=== PATIENT | female | born 1990 | race Hispanic/Latino ===

== ENCOUNTER 2020-01-28 21:44 | Emergency (ER) | payer SELFPAY ==
--- OUTSIDE RECORDS SUMMARY | 2020-01-28 23:00 | XMS REPORT | Continuity of Care Document ---
:1990 Author Organization [facility] t Address [address] [place] [address] Dr. Kamara [address] [place] [address] Care Team Providers Name Role Phone Unavailable Unavailable Unavailable Problems This patient has no known problems. Allergies, Adverse Reactions, Alerts This patient has no known allergies or adverse reactions. Medications This patient has no known medications. Procedures This patient has no known procedures. Results This patient has no known results.
--- NOTE | 2020-01-29 10:31 | ER ---
Nurse's Notes [facility] Name: Valentino Espinosa Age: 29 yrs Sex: Female : 1990 Arrival Date: 01/28/2020 Time: 21:45 Bed Waiting Private MD: Diagnosis: Presentation: 01/27 21:56 Chief complaint: Patient states: Abdominal pain since an hour ago. More on the lower ca1 abdomen and radiating to back and bottom. Denies N/V/D. Coronavirus screen: Proceed with normal triage. Patient denies a cough. Patient denies shortness of breath or difficulty breathing. Patient denies measured and/or subjective temperature greater than 100.4F prior to today's visit. Patient denies travel on a cruise ship or to a country the [facility] currently lists as an affected area. Patient denies contact with known and/or suspected case of COVID-19. Ebola Screen: Patient negative for fever greater than or equal to 101.5 degrees Fahrenheit, and additional compatible Ebola Virus Disease symptoms Patient denies exposure to infectious person. Patient denies travel to an Ebola-affected area in the 21 days before illness onset. No symptoms or risks identified at this time. Initial Sepsis Screen: Does the patient meet any 2 criteria? No. Patient's initial sepsis screen is negative. Does the patient have a suspected source of infection? No. Patient's initial sepsis screen is negative. Risk Assessment: Do you want to hurt yourself or someone else? Patient reports no desire to harm self or others. 21:56 Method Of Arrival: Ambulatory ca1 21:56 Acuity: LAVON 3 ca1 21:56 Onset of symptoms was January 28, 2020. 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 - Social history:: Smoking status: Patient denies any tobacco usage or history of. Vital Signs: 21:56 BP 124 / 73; Pulse 88; Resp 16 S; Temp 98(TE); Pulse Ox 100% on R/A; Weight 77.11 kg ca1 (R); Height 5 ft. 8 in. (172.72 cm) (R); Pain 810; 21:56 Body Mass Index 25.85 (77.11 kg, 172.72 cm) ca1 ED Course: 21:45 Patient arrived in ED. ag3 21:58 Triage completed. ca1 21:58 Arm band placed on right wrist. ca1 Administered Medications: No medications were administered Outcome: 22:34 Patient left the ED. tl1 Signatures: Karolina Lopez RN RN tl1 Syl Campos ag3 Jazzmine Burgos, RN RN ca1
[2020-01-29 13:57] VITALS: BP 124/73; TEMP 98; O2SAT 100
== END 2020-01-28 22:34 | disposition left against medical advice (07) ==
LOC: ER 21:44
DX: Z53.21 Procedure and treatment not carried out due to patient leaving prior to being seen by health care provider (principal)
CPT/HCPCS: 99281

== ENCOUNTER 2020-08-06 21:41 | Emergency (ER) | payer SELFPAY ==
--- OUTSIDE RECORDS SUMMARY | 2020-08-06 21:43 | XMS REPORT | Continuity of Care Document ---
:1990 Author Organization [facility] t Address [address] [place] [address] Care Team Providers Name Role Phone Doctor Unassigned, Name Attending Clinician Unavailable Karol Lanza Attending Clinician Problems This patient has no known problems. Allergies, Adverse Reactions, Alerts This patient has no known allergies or adverse reactions. Medications This patient has no known medications. Procedures This patient has no known procedures. Encounters Start End Encounter Admission Attending Care Care Encounter Source Date/Time Date/Time Type Type Clinicians Facility Department ID 2020-06-09 2020-06-09 Orders Doctor TRISTON [id number] 00:00:00 00:00:00 Only UnassignedKAEL [id number] [place] [facility] [id number] 2020-03-05 2020-03-05 Telephone ORTEGA Stone [id number] 00:00:00 00:00:00 Lexis Roberson DIRECTOR SAF[employer]NCIL [id number] [facility] [id number] MATERNAL [id number] & CHILD [address] [place] [address] Results This patient has no known results.
--- OUTSIDE RECORDS SUMMARY | 2020-08-06 21:43 | XMS REPORT | Summary of Care ---
:1990 Author Organization [facility] Address [address] [place] [address] Care Team Providers Name Role Phone Karol Stone Primary Care Provider Encounter Details Date Type Department Care Team Description 06/09/2020 Orders Only [facility] Doctor Unassigned, No [address] [facility] Name [place] [id number] [address] [facility] [place] [id number] Allergies No Known Allergiesdocumented as of this encounter (statuses as of 06/24/2020) Medications Medication Sig Dispensed Refills Start Date End Date Status ALPRAZolam (XANAX) 0.5 Take 0.5 mg by 0 Active mg tablet mouth 3 (three) times daily. VICODIN 5-300 mg TAKE ONE (1) 0 12/07/2017 Active tablet TABLET(S) BY MOUTH EVERY FOUR TO SIX HOURS NEEDED FOR DENTAL PAIN. acyclovir 400 mg Take 1 tablet by 60 tablet 0 03/05/2020 Active tabletIndications: mouth 2 (two) Herpes, vulvar times daily. documented as of this encounter (statuses as of 06/24/2020) Active Problems Problem Noted Date Well woman exam 02/26/2019 Contraceptive management 02/26/2019 Pain pelvic 02/26/2019 Genital herpes 10/17/2016 documented as of this encounter (statuses as of 06/24/2020) Resolved Problems Problem Noted Date Resolved Date Vaginitis and vulvovaginitis, unspecified 11/14/2016 01/10/2018 Sore throat 04/19/2016 01/10/2018 Exposure to herpes 04/19/2016 11/23/2017 documented as of this encounter (statuses as of 06/24/2020) Immunizations Name Administration Dates Next Due Td 09/07/2015 documented as of this encounter Social History Tobacco Use Types Packs/Day Years Used Date Former Smoker Quit: 08/07/19 11 Smokeless Tobacco: Never Used Alcohol Use Drinks/Week oz/Week Comments Yes 0 Standard drinks or equivalent 0.0 socially Sex Assigned at Date Recorded Not on file documented as of this encounter Last Filed Vital Signs Not on filedocumented in this encounter Plan of Treatment Health Maintenance Due Date Last Done Comments VARICELLA VACCINES (1 of 2 1989 - 2-dose childhood series) Depression Screening 2000 DTaP,Tdap,and Td Vaccines 2007 09/07/2015 (1 - Tdap) INFLUENZA VACCINE (#1) 2020 PAP SMEAR 02/26/2022 02/26/2019, 04/08/2015, 11/01/2011, Additional history exists PNEUMOCOCCAL 0-64 YEARS Aged Out No longe r eligible COMBINED SERIES based on patient 's age to complete this topic documented as of this encounter Procedures Procedure Name Priority Date/Time Associated Diagnosis Comme nts AUTHORIZATION FOR RELEASE Routine 06/09/2020 12:01 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
[2020-08-06] MEDS ORDERED: LORAZEPAM 0.5 MG TABLET ONE (22:12)
--- NOTE | 2020-08-06 22:43 | EDPHYS ---
Physician Documentation [facility] Name: Valentino Espinosa Age: 30 yrs Sex: Female : 1990 Arrival Date: 08/06/2020 Time: 21:41 Bed 7 Private MD: ED Physician Frank Live HPI: 08/06 21:53 This 30 yrs old Female presents to ER via Unassigned with complaints of kb Shortness Of Breath, Chest Pressure, Covid+. 21:53 The patient has shortness of breath at rest. Onset: The symptoms/episode began/occurred kb yesterday. Duration: The symptoms are continuous. The patient's shortness of breath has no apparent modifying factors. Associated signs and symptoms: Pertinent positives: anxiety, Pertinent negatives: chest pain, non-productive cough, productive cough, diaphoresis, dizziness, fever, hemoptysis, loss of consciousness, nausea, numbness in extremities, visual changes, vomiting. Severity of symptoms: At their worst the symptoms were moderate in the emergency department the symptoms are unchanged. The patient has experienced similar episodes in the past, a few times. The patient has not recently seen a physician. Pt states she was diagnosed with covid on Monday. Started having weakness and shortness of breath yesterday. States she has anxiety and it has been bad today so it's making the shortness of breath worse. Came in for something for anxiety and a chest x-ray. I told pt I would like to do blood work and a Chest CT to rule out a PE. Pt states she recently had blood work and it was all fine. Refuses blood work and CT at this time. States she just wants a chest x-ray. Started zithromax and prednisone today. 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 - Social history:: Smoking status: Patient denies any tobacco usage or history of. ROS: 21:59 Constitutional: Negative for fever, chills, and weight loss, Cardiovascular: Negative kb for chest pain, palpitations, and edema, Abdomen/GI: Negative for abdominal pain, nausea, vomiting, diarrhea, and constipation, Back: Negative for injury and pain, MS/Extremity: Negative for injury and deformity, Skin: Negative for injury, rash, and discoloration, Neuro: Negative for headache, weakness, numbness, tingling, and seizure. 21:59 Respiratory: Positive for shortness of breath. 21:59 Psych: Positive for anxiety. Exam: 21:58 Head/Face: Normocephalic, atraumatic. Chest/axilla: Normal chest wall appearance and kb motion. Nontender with no deformity. No lesions are appreciated. Cardiovascular: Regular rate and rhythm with a normal S1 and S2. No gallops, murmurs, or rubs. Normal PMI, no JVD. No pulse deficits. Respiratory: Lungs have equal breath sounds bilaterally, clear to auscultation and percussion. No rales, rhonchi or wheezes noted. No increased work of breathing, no retractions or nasal flaring. Abdomen/GI: Soft, non-tender, with normal bowel sounds. No distension or tympany. No guarding or rebound. No evidence of tenderness throughout. Skin: Warm, dry with normal turgor. Normal color with no rashes, no lesions, and no evidence of cellulitis. MS/ Extremity: Pulses equal, no cyanosis. Neurovascular intact. Full, normal range of motion. Neuro: Awake and alert, GCS 15, oriented to person, place, time, and situation. Cranial nerves II-XII grossly intact. Motor strength 5/5 in all extremities. Sensory grossly intact. Cerebellar exam normal. Normal gait. 21:58 Constitutional: The patient appears alert, awake, anxious, tearful Vital Signs: 21:54 BP 141 / 89; Pulse 117; Resp 19 S; Temp 98.5(TE); Pulse Ox 100% on R/A; Weight 81.65 kg ca1 (R); Height 5 ft. 7 in. (170.18 cm) (R); 21:54 Body Mass Index 28.19 (81.65 kg, 170.18 cm) ca1 MDM: 21:49 Patient medically screened. kb 21:57 Data reviewed: vital signs, nurses notes. Data interpreted: Pulse oximetry: on room air kb is 100 %. Interpretation: normal. 22:23 Counseling: I had a detailed discussion with the patient and/or guardian regarding: the kb historical points, exam findings, and any diagnostic results supporting the discharge/admit diagnosis, radiology results, the need for outpatient follow up, a family practitioner, to return to the emergency department if symptoms worsen or persist or if there are any questions or concerns that arise at home. 22:41 ED course: Pt states she is feeling much better after ativan and she is ready to go kb home. . 08/06 21:49 Order name: Chest Single View XRAY kb Administered Medications: 21:59 Drug: Ativan 0.5 mg Route: PO; ea Disposition: 23:04 Co-signature as Attending Physician, Frank Live MD. cm Disposition: 08/06/20 22:43 Discharged to Home. Impression: Anxiety disorder, unspecified, Coronavirus infection, unspecified, Shortness of breath. - Condition is Stable. - Discharge Instructions: Panic Attacks, Ycit-cn-Opqa, COVID-19. - Prescriptions for Hydroxyzine HCl 25 mg Oral Tablet - take 1 tablet by ORAL route every 6 hours As needed; 18 tablet. Albuterol Sulfate 90 mcg/actuation - inhale 1-2 puff by INHALATION route every 4-6 hours; 1 Inhaler. - Medication Reconciliation Form, Thank You Letter, Antibiotic Education, Prescription Opioid Use form. - Follow up: Emergency Department; When: As needed; Reason: Worsening of condition. Follow up: Private Physician; When: 2 - 3 days; Reason: Recheck today's complaints, Continuance of care, Re-evaluation by your physician. Signatures: Dispatcher [employer] EDCO Marimar Nicole, MARK ORTEGA-Frank Castellano MD MD pkl Antunez, Elena, RN RN ea Vicente, Ronaldo, RN RN rv Acob, Cheryl RN FAM ca1 Corrections: (The following items were deleted from the chart) 23:02 22:43 08/06/2020 22:43 Discharged to Home. Impression: Anxiety disorder, unspecified; rv Coronavirus infection, unspecified; Shortness of breath. Condition is Stable. Forms are Medication Reconciliation Form, Thank You Letter, Antibiotic Education, Prescription Opioid Use. Follow up: Emergency Department; When: As needed; Reason: Worsening of condition. Follow up: Private Physician; When: 2 - 3 days; Reason: Recheck today's complaints, Continuance of care, Re-evaluation by your physician. kb
--- NOTE | 2020-08-06 22:43 | ER ---
Nurse's Notes [facility] Name: Valentino Espinosa Age: 30 yrs Sex: Female : 1990 Arrival Date: 08/06/2020 Time: 21:41 Bed 7 Private MD: Diagnosis: Anxiety disorder, unspecified;Coronavirus infection, unspecified;Shortness of breath Presentation: 08/06 21:54 Chief complaint: Patient states: Tested positive for Covid Monday08/03/2020. Symptoms ca1 started the day before with loss of smell and congestion. [place]in better. Yesterday, started SOB and having anxiety. Coronavirus screen: Client denies travel out of the [place] in the last 14 days. Client reports previous positive COVID test result. Date of collection: August 03, 2020. Ebola Screen: Patient negative for fever greater than or equal to 101.5 degrees Fahrenheit, and additional compatible Ebola Virus Disease symptoms Patient denies exposure to infectious person. Patient denies travel to an Ebola-affected area in the 21 days before illness onset. No symptoms or risks identified at this time. Initial Sepsis Screen: Does the patient meet any 2 criteria? Yes Does the patient have a suspected source of infection? No. Patient's initial sepsis screen is negative. Risk Assessment: Do you want to hurt yourself or someone else? Patient reports no desire to harm self or others. Onset of symptoms was August 06, 2020. 21:54 Method Of Arrival: Ambulatory ca1 21:54 Acuity: LAVON 3 ca1 Triage Assessment: 22:06 Respiratory: the patient has mild shortness of breath. rv 22:12 Respiratory: Reports shortness of breath on exertion Onset: The symptoms/episode rv began/occurred gradually. 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 - Social history:: Smoking status: Patient denies any tobacco usage or history of. Screenin:55 Abuse screen: Denies threats or abuse. Nutritional screening: No deficits noted. ea Tuberculosis screening: No symptoms or risk factors identified. Fall Risk None identified. Assessment: 22:04 General: Appears Behavior is anxious. Pain: Complains of pain in chest. Neuro: Level of rv Consciousness is awake, alert, obeys commands, Oriented to person, place, time, situation. Cardiovascular: Patient's skin is warm and dry. Rhythm is sinus tachycardia. GI: No signs and/or symptoms were reported involving the gastrointestinal system. : No signs and/or symptoms were reported regarding the genitourinary system. Derm: Skin is intact. 22:06 Respiratory: Airway. rv 22:12 Respiratory: Respiratory effort is even, unlabored, Breath sounds are clear bilaterally.rv Vital Signs: 21:54 BP 141 / 89; Pulse 117; Resp 19 S; Temp 98.5(TE); Pulse Ox 100% on R/A; Weight 81.65 kg ca1 (R); Height 5 ft. 7 in. (170.18 cm) (R); 21:54 Body Mass Index 28.19 (81.65 kg, 170.18 cm) ca1 ED Course: 21:41 Patient arrived in ED. ds1 21:48 Marimar Nicole FNP-C is [facility]. kb 21:48 Frank Live MD is Attending Physician. kb 21:49 Caro Ram, FAM is Primary Nurse. ea 21:56 Triage completed. ca1 21:57 Arm band placed on right wrist. ca1 22:00 Chest Single View XRAY In Process Unspecified. EDMS 22:06 Patient has correct armband on for positive identification. Bed in low position. Call rv light in reach. quality assurance monitor on. Pulse ox on. NIBP on. 23:01 No provider procedures requiring assistance completed. Patient did not have IV access rv during this emergency room visit. Administered Medications: 21:59 Drug: Ativan 0.5 mg Route: PO; ea Outcome: 22:43 Discharge ordered by . kb 23:01 Discharged to home ambulatory. rv 23:01 Condition: good 23:01 Discharge instructions given to patient, Instructed on discharge instructions, follow up and referral plans. medication usage, Demonstrated understanding of instructions, follow-up care, medications, Prescriptions given X 2. 23:02 Patient left the ED. rv Signatures: Dispatcher [employer] EDGA Marimar Nicole FNP-C FNP-Ckb Sanford, Demi ds1 Caro Ram, RN RN ea Daniel Verduzco, RN RN rv Jazzmine Burgos, RN RN ca1
[2020-08-06 23:26] VITALS: BP 141/89; TEMP 98.5; O2SAT 100
--- NOTE | 2020-08-07 09:26 | RAD REPORT ---
EXAM DESCRIPTION: RAD - Chest Single View - 08/06/2020 10:00 pm CLINICAL HISTORY: DYSPNEA, positive test for COVID COMPARISON: July 2014 TECHNIQUE: AP portable chest image was obtained 08/06/2020 10:00 pm . FINDINGS: Lungs are clear. Heart and vasculature are normal. No measurable pleural effusion and no p neumothorax. No acute bony abnormality seen. No acute aortic findings suspected. IMPRESSION: No acute cardiopulmonary process. No significant change from comparison study.
== END 2020-08-06 23:02 | disposition home or self-care (01) ==
LOC: ER 21:41
DX: U07.1 COVID-19 (principal); F41.9 Anxiety disorder, unspecified; Z88.5 Allergy status to narcotic agent
CPT/HCPCS: 71045; 99284

== ENCOUNTER → 2023-09-04 | Emergency (ER) | payer OTHER ==
--- OUTSIDE RECORDS SUMMARY | 2023-09-04 07:58 | XMS REPORT | Continuity of Care Document ---
Author Name Unknown Address [address] [facility] [place] [address] [facility] thconnect Address [address] [facility] [address] [place] [address] Care Team Providers Care Big 6 Dealer Name Role Phone Max Centeno Attending Clinician Unavailjoana e Doctor Unassigned, [place] Attending Clinician U navailable Akinsipe WHCNP, Lexis Roberson Attending Clinician + Payers Payer Name Policy Type Policy Number Effective Date Expirati on Date Source Problems Condition Name Condition Details Condition Category Status Onset Date Resolution Date Last Treatment Date Treating Clinician Comments Source Contracept geno management Contracept geno management Disease Active 02-26 00:00: 00 [facility] Pain pelvic Pain pelvic Disease Active 02-26 00:00: 00 [facility] Genital herpes Genital herpes Disease Active 10-17 00:00: 00 [facility] Social History Social Habit Start Date Stop Date Quantity Comments Source Sex Assigned At [facility] Tobacco use and exposure 2019-02-26 00:00:00 2019-02-26 00:00:00 Never used [facility] Alcohol intake 2019-02-26 00:00:00 2019-02-26 00:00:00 Current drinker of alcohol (finding) [facility] Alcohol Comment 2015-04-08 00:00:00 2015-04-08 00:00:00 socially [facility] History of tobacco use 2010-08-07 00:00:00 Smoker [facility] Smoking Status Start Date Stop Date Source Former smoker 2019-02-26 00:00:00 2019-02-26 00:00:00 [facility] Medications Ordered Medication Name Filled Medication Name Start Date Stop Date Current Medication? Ordering Clinician Indication Dosage Frequency Signature (SIG) Comments Components Source acyclovir 400 mg tablet 03-05 00:00: 00 Yes [id number] 400mg Take 1 tablet by mouth 2 (two) times daily. [facility] acyclovir 400 mg tablet 03-05 00:00: 00 Yes [id number] 400mg Take 1 tablet by mouth 2 (two) times daily. [facility] ALPRAZolam (XANAX) 0.5 mg tablet 02-26 15:39: 51 Yes .5mg Take 0.5 mg by mouth 3 (three) times daily. [facility] ALPRAZolam (XANAX) 0.5 mg tablet 02-26 15:39: 51 Yes .5mg Take 0.5 mg by mouth 3 (three) times daily. [facility] acyclovir 400 mg tablet 02-26 00:00: 00 03-05 00:00 :00 No [id number] 400mg Take 1 tablet by mouth 2 (two) times daily. [facility] VICODIN 5-300 mg tablet 12-07 00:00: 00 Yes TAKE ONE (1) TABLET(S) BY MOUTH EVERY FOUR TO SIX HOURS NEEDED FOR DENTAL PAIN. [facility] VICODIN 5-300 mg tablet 12-07 00:00: 00 Yes TAKE ONE (1) TABLET(S) BY MOUTH EVERY FOUR TO SIX HOURS NEEDED FOR DENTAL PAIN. [facility] Procedures Procedure Date / Time Performed Performing Clinician Source AUTHORIZATION FOR RELEASE OF PHI 2020-06-09 06:01:00 Doctor Unassigned, [place] [facility] Encounters Start Date/Time End Date/Time Encounter Type Admission Type Attending Clinicians Care Facility Care Department Encounter ID Source 2023-09-07 09:00:00 Inpatient Max Decker [facility] [id number] [facility] 2022-12-27 16:22:53 2022-12-27 16:22:53 Outpatient [facility] [id number] Hector Joshua 2020-06-09 00:00:00 2020-06-09 00:00:00 Orders Only Doctor Unassigned, [place] [facility] [id number] [facility] 2020-06-09 00:00:00 2020-06-09 00:00:00 Orders Only Doctor Unassigned, [place] [facility] [id number] 2020-03-05 00:00:00 2020-03-05 00:00:00 Telephone Lexis Stone [facility] 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
[2023-09-04 08:33] LABS: Hematocrit 32.2 % (36.0-45.0); Lymphocytes % 19.9 % (15.3-44.8); Platelets 346 thou/uL (152-406); RBC Red Blood Cell Count 3.62 M/uL (3.86-4.86)
[2023-09-04 08:49] LABS: Potassium 3.7 mEq/L (3.5-5.1)
[2023-09-04 09:00] LABS: Specific Gravity 1.013 (1.005-1.030); Urine Bacteria None Seen /HPF (<20); Urine Bilirubin NEGATIVE (Negative); Urine Blood Negative (Negative); Urine Clarity Turbid (Clear); Urine Color Light-Yellow (Yellow); Urine Glucose NEGATIVE (Negative); Urine Mucus Slight /HPF (None Seen); Urine Protein NEGATIVE (Negative); Urine RBC None Seen /HPF (None Seen); Urine Urobilinogen Normal (Normal)
--- NOTE | 2023-09-04 09:16 | RAD REPORT ---
EXAM DESCRIPTION: US - OB Limited - 09/04/2023 8:53 am CLINICAL HISTORY: with abdominal pain COMPARISON: None FINDINGS: Single live intrauterine in breech presentation. Placenta is anterior. No retroplacental/subchorionic bleed. Cervix 3.4 centimeters. Cardiac activity 152 beats per minute. Amniotic fluid normal. Right and left adnexal unremarkable AC 17 centimeters 22 weeks 0 days FL 3.7 centimeters 21 weeks 6 days Estimated weight 483 grams Estimated weight greater 97 percentile Myometrial contraction was visualized IMPRESSION: Single live intrauterine in breech presentation Estimated gestational age 22 weeks 0 days MIRLANDE 01/08/2024 Estimated weight greater than ninety-seventh percentile It is recommended that the patient have a nonemergent complete OB ultrasound to better evaluate estim ated gestational estimated weight
--- NOTE | 2023-09-04 09:25 | ER ---
Nurse's Notes [facility] Name: Valentino Espinosa Age: 33 yrs Sex: Female : 1990 Arrival Date: 09/04/2023 Time: 07:56 Bed 7 Private MD: Diagnosis: related postcoital bleeding/cramping Presentation: 09/04 08:20 Chief complaint: Patient states: Spotting and abdominal cramping since yesterday. ll1 Coronavirus screen: Client denies travel out of the [place] in the last 14 days. At this time, the client does not indicate any symptoms associated with coronavirus-19. Ebola Screen: Patient denies travel to an Ebola-affected area in the 21 days before illness onset. Initial Sepsis Screen: Does the patient meet any 2 criteria? No. Patient's initial sepsis screen is negative. Does the patient have a suspected source of infection? No. Patient's initial sepsis screen is negative. Risk Assessment: Do you want to hurt yourself or someone else? Patient reports no desire to harm self or others. Onset of symptoms was September 03, 2023. 08:20 Method Of Arrival: Ambulatory ll1 08:20 Acuity: LAVON 3 ll1 Triage Assessment: 08:21 General: Appears in no apparent distress. Behavior is calm, cooperative, appropriate ll1 for age. Pain: Complains of pain in pelvis Quality of pain is described as crampy. GI: Reports cramping. : Reports vaginal bleeding that is spotty. 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 - Social history:: Smoking status: Patient denies any tobacco usage or history of. Screenin:37 [facility] ED Fall Risk Assessment (Adult) Score/Fall Risk Level 0 - 2 = Low Risk ll1 Oriented to surroundings, Maintained a safe environment, Educated pt \T\ family on fall prevention, incl call for assistance when getting out of bed, Hourly rounding (assess needs \T\ fall precautionary measures) done. Abuse screen: Denies threats or abuse. Nutritional screening: No deficits noted. Tuberculosis screening: No symptoms or risk factors identified. Assessment: 08:35 Reassessment: No changes from previously documented assessment. Gait steady to restroom.ll1 09:37 Reassessment: No changes from previously documented assessment. Patient and/or family ll1 updated on plan of care and expected duration. Pain level reassessed. Patient is alert, oriented x 3, equal unlabored respirations, skin warm/dry/pink. 09:37 GI: Bowel sounds present X 4 quads. Abd is soft and non tender X 4 quads. ll1 Vital Signs: 08:22 BP 119 / 84; Pulse 108; Resp 18; Temp 98.5; Pulse Ox 98% on R/A; Weight 90.72 kg; em1 Height 5 ft. 8 in. ; Pain 6/10; 09:37 BP 122 / 76; Pulse 91; Resp 16; Pulse Ox 99% ; ll1 08:22 Body Mass Index 30.41 (90.72 kg, 172.72 cm) em1 08:22 Pain Scale: Adult em1 ED Course: 07:59 Patient arrived in ED. mg5 08:00 Violeta Keith PA-C is PHCP. sb4 08:00 Parker Agrawal MD is Attending Physician. sb4 08:19 Lacie Faith, FAM is Primary Nurse. ll1 08:20 Arm band placed on Patient placed in an exam room, on a stretcher. ll1 08:21 Triage completed. ll1 08:25 Inserted saline lock: 22 gauge in left antecubital area, using aseptic technique. Blood ap3 collected. 08:43 Test, Urine Sent. ll1 08:43 Urinalysis w/ reflexes Sent. ll1 08:45 US OB Limited In Process Unspecified. EDMS 09:36 No provider procedures requiring assistance completed. IV discontinued, intact, ll1 bleeding controlled, No redness/swelling at site. Pressure dressing applied. 09:38 Patient has correct armband on for positive identification. Provided Education on: n/a. ll1 Administered Medications: No medications were administered Medication: 09:38 VIS not applicable for this client. ll1 Outcome: 09:25 Discharge ordered by . sb4 09:38 Discharged to home ambulatory, ll1 09:38 Condition: stable 09:38 Discharge instructions given to patient, Instructed on discharge instructions, follow up and referral plans. Demonstrated understanding of instructions, follow-up care, 09:38 Patient left the ED. ll1 Signatures: Dispatcher [employer] Benjamin Grant em1 Pauly Gallegos RN RN [email or web address] Lacie Faith RN RN ll1 Violeta Keith PA-C PAYohan sb4 Anjelica Higuera 5
--- NOTE | 2023-09-04 09:26 | EDPHYS ---
Physician Documentation [facility] Name: Valentino Espinosa Age: 33 yrs Sex: Female : 1990 Arrival Date: 09/04/2023 Time: 07:56 Bed 7 Private MD: ED Physician Parker Agrawal HPI: 09/04 08:20 This 33 yrs old Female presents to ER via Unassigned with complaints of sb4 Abdominal Cramping, PRG-20wks. 08:20 The patient presents to the emergency department with abdominal pain, of the suprapubic sb4 area, that started last night, vaginal bleeding, described as spotting. The estimated gestational age is 20 weeks. course: care: private OB physician, Leakage of Fluid: none appreciated, Ultrasound: the patient had an ultrasound, which was normal, Risk/complications: no obvious risks or complications are appreciated. Previous pregnancies: in previous pregnancies patient has had no complications. The patient has not experienced similar symptoms in the past. 08:20 had vaginal intercourse last night, spotting and abdominal pain shortly after. 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 - Social history:: Smoking status: Patient denies any tobacco usage or history of. ROS: 08:20 Constitutional: Negative for fever, chills, and weight loss, sb4 08:20 : Positive for pelvic pain, vaginal bleeding, 08:20 All other systems are negative, Exam: 08:20 Constitutional: This is a well developed, well nourished patient who is awake, alert, sb4 and in no acute distress. Head/Face: Normocephalic, atraumatic. Eyes: Extra-ocular motions intact. Periorbital areas with no swelling, redness, or edema. ENT: Mucous membranes moist. Cardiovascular: Regular rate and rhythm with a normal S1 and S2. Respiratory: Lungs have equal breath sounds bilaterally, clear to auscultation and percussion. No rales, rhonchi or wheezes noted. No increased work of breathing, no retractions or nasal flaring. Abdomen/GI: Soft, non-tender, no distension. Skin: Warm, dry with normal turgor. Normal color with no rashes, no lesions, and no evidence of cellulitis. MS/ Extremity: Pulses equal, no cyanosis. Neurovascular intact. Full, normal range of motion. Neuro: Awake and alert, GCS 15, oriented to person, place, time, and situation. Motor strength 5/5 in all extremities. Sensory grossly intact. Vital Signs: 08:22 BP 119 / 84; Pulse 108; Resp 18; Temp 98.5; Pulse Ox 98% on R/A; Weight 90.72 kg; em1 Height 5 ft. 8 in. ; Pain 6/10; 09:37 BP 122 / 76; Pulse 91; Resp 16; Pulse Ox 99% ; ll1 08:22 Body Mass Index 30.41 (90.72 kg, 172.72 cm) em1 08:22 Pain Scale: Adult em1 MDM: 08:11 Patient medically screened. sb4 08:20 Differential diagnosis: threatened , UTI, postcoital bleeding. sb4 09:23 Data reviewed: vital signs, nurses notes, lab test result(s), radiologic studies, and sb4 as a result, I will discharge patient. Counseling: I had a detailed discussion with the patient and/or guardian regarding the historical points, exam findings, and any diagnostic results supporting the discharge/admit diagnosis, lab results, radiology results, the need for outpatient follow up, an OB/Gyne specialist, to return to the emergency department if symptoms worsen or persist or if there are any questions or concerns that arise at home. 09/04 08:20 Order name: Basic Metabolic Panel; Complete Time: 08:54 sb4 09/04 08:20 Order name: CBC with Diff; Complete Time: 08:36 sb4 09/04 08:20 Order name: Test, Urine; Complete Time: 09:04 sb4 09/04 08:20 Order name: Urinalysis w/ reflexes; Complete Time: 09:04 sb4 09/04 08:20 Order name: US OB Limited; Complete Time: 09:17 sb4 09/04 08:20 Order name: IV Saline Lock; Complete Time: 08:21 sb4 09/04 08:20 Order name: Labs collected and sent; Complete Time: 08:21 sb4 Administered Medications: No medications were administered Disposition: 09:59 Co-signature as Attending Physician, Parker Agrawal MD I reviewed the patient's care rt provided by the Advanced Practice Provider and agree with the diagnosis and treatment plan. Disposition Summary: 09/04/23 09:25 Discharge Ordered Notes: Location: Home sb4 Problem: new sb4 Symptoms: have improved sb4 Condition: Stable sb4 Diagnosis - related postcoital bleeding/cramping sb4 Followup: sb4 - With: Private Physician - When: 1 week - Reason: Recheck today's complaints, Re-evaluation by your physician Discharge Instructions: - Discharge Summary Sheet sb4 - Vaginal Bleeding During , Second Trimester, [id number] sb4 Forms: - Medication Reconciliation Form sb4 - Thank You Letter sb4 - Antibiotic Education sb4 - Prescription Opioid Use sb4 - Patient Portal Instructions sb4 - Leadership Thank You Letter sb4 Signatures: Dispatcher [employer] Lacie Laurent RN RN ll1 Violeta Keith, PA-C PA-C sb4 Parker Agrawal MD MD rt
[2023-09-04 10:36] VITALS: BP 122/76; TEMP 98.5; O2SAT 99
== END ==
LOC: ER 07:56
DX: O20.8 Other hemorrhage in early pregnancy (principal); Z3A.20 20 weeks gestation of pregnancy; Z88.5 Allergy status to narcotic agent
CPT/HCPCS: 36415; 76815; 80048; 81001; 81025; 85025

== ENCOUNTER 2023-11-03 14:05 | Emergency (ER) | payer OTHER ==
--- NOTE | 2023-11-03 14:18 | ER ---
Nurse's Notes 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 Coronavirus screen: At this time, the client does not indicate any symptoms associated with coronavirus-19. Ebola Screen: No symptoms or risks identified at this time. Initial Sepsis Screen: Does the patient meet any 2 criteria? HR > 90 bpm. Does the patient have a suspected source of infection? No. Patient's initial sepsis screen is negative. Risk Assessment: Do you want to hurt yourself or someone else? Patient reports no desire to harm self or others. Onset of symptoms was November 03, 2023. 14:14 Method Of Arrival: Ambulatory ap3 14:14 Acuity: LAVON 4 ap3 Triage Assessment: 14:16 General: Appears in no apparent distress. Behavior is calm, cooperative, appropriate ap3 for age. Pain: Complains of pain in dorsal aspect of middle phalanx of left index finger. Neuro: Level of Consciousness is awake, alert, obeys commands, Oriented to person, place, time, situation, Appropriate for age. Cardiovascular: Patient's skin is warm and dry. Respiratory: Airway is patent Respiratory effort is even, unlabored, Respiratory pattern is regular, symmetrical. 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 - Social history:: Smoking status: Patient denies any tobacco usage or history of. Screenin:16 [facility] ED Fall Risk Assessment (Adult) History of falling in the last 3 months, ap3 including since admission No falls in past 3 months (0 pts) Confusion or Disorientation No (0 pts) Intoxicated or Sedated No (0 pts) Impaired Gait No (0 pts) Mobility Assist Device Used No (0 pt) Altered Elimination No (0 pt) Score/Fall Risk Level 0 - 2 = Low Risk Oriented to surroundings, Maintained a safe environment, Educated pt \T\ family on fall prevention, incl call for assistance when getting out of bed, Assessed \T\ reinforced patient's understanding of fall precautions, Provided non-skid footwear, Hourly rounding (assess needs \T\ fall precautionary measures) done, Used ambulatory aids as needed (educated on \T\ assisted with), Used gait belt as appropriate. Abuse screen: Denies threats or abuse. Nutritional screening: No deficits noted. Tuberculosis screening: No symptoms or risk factors identified. Vital Signs: 14:14 BP 122 / 75; Pulse 94; Resp 17; Temp 98.4; Pulse Ox 100% ; Weight 92.99 kg; Pain 1/10; ap3 14:14 Pain Scale: Adult ap3 ED Course: 14:06 Patient arrived in ED. ra3 14:08 Silviano Perry DO is Attending Physician. ms3 14:15 Triage completed. ap3 14:16 Arm band placed on right wrist. ap3 14:29 Pauly Gallegos, FAM is Primary Nurse. ap3 14:29 No provider procedures requiring assistance completed. ap3 14:41 Provided Education on: discharge instructions. ap3 14:41 Patient has correct armband on for positive identification. Bed in low position. Call ap3 light in reach. 14:41 Patient did not have IV access during this emergency room visit. ap3 Administered Medications: 14:41 Drug: Bacitracin Topical Ointment (500 unit/g) 1 application Topical once Route: ap3 Topical; Site: affected area; 14:42 Follow up: Response: Medication administered at discharge. ap3 Medication: 14:29 VIS not applicable for this client. ap3 Outcome: 14:18 Discharge ordered by . ms3 14:41 Discharged to home ambulatory, ap3 14:41 Condition: good 14:41 Discharge instructions given to patient, Instructed on discharge instructions, follow up and referral plans. wound care, Demonstrated understanding of instructions, follow-up care, wound care, 14:42 Patient left the ED. ap3 Signatures: Pauly Gallegos RN RN ap3 Silviano Perry DO DO ms3 Sherice Alejandro ra3
--- NOTE | 2023-11-03 14:18 | EDPHYS ---
Physician Documentation [facility] Name: Valentino Espinosa Age: 33 yrs Sex: Female : 1990 Arrival Date: 11/03/2023 Time: 14:05 Bed 11 Private MD: ED Physician Silviano Perry HPI: 11/02 14:18 This 33 yrs old Female presents to ER via Ambulatory with complaints of ms3 laceration to the finger. 14:18 33-year-old female with past medical history of panic attacks presents to the emergency ms3 department for left index finger laceration after changing the air conditioner filter. Patient states tetanus is up-to-date. Patient states she is having mild pain in her finger.. 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 - Social history:: Smoking status: Patient denies any tobacco usage or history of. ROS: 14:18 Constitutional: Negative for fever, and chills. Neck: Negative for injury, pain, and ms3 swelling, Cardiovascular: Negative for chest pain, and palpitations. Respiratory: Negative for shortness of breath, cough, wheezing, and pleuritic chest pain, Abdomen/GI: Negative for abdominal pain, nausea, vomiting, diarrhea, and constipation, 14:18 Skin: Positive for laceration(s), Exam: 14:18 Constitutional: This is a well developed, well nourished patient who is awake, alert, ms3 and in no acute distress. Cardiovascular: Regular rate and rhythm with a normal S1 and S2. No gallops, murmurs, or rubs. Normal PMI, no JVD. No pulse deficits. Respiratory: Lungs have equal breath sounds bilaterally, clear to auscultation and percussion. No rales, rhonchi or wheezes noted. No increased work of breathing, no retractions or nasal flaring. Abdomen/GI: Soft, non-tender, with normal bowel sounds. No distension or tympany. No guarding or rebound. No evidence of tenderness throughout. 14:18 Skin: injury, laceration(s), the wound is approximately 1 cm(s), of the dorsal aspect of middle phalanx of left index finger, Vital Signs: 14:14 BP 122 / 75; Pulse 94; Resp 17; Temp 98.4; Pulse Ox 100% ; Weight 92.99 kg; Pain 1/10; ap3 14:14 Pain Scale: Adult ap3 MDM: 14:17 Patient medically screened. ms3 14:18 Differential diagnosis: abrasion, Superficial laceration. Data reviewed: vital signs, ms3 nurses notes, and as a result, I will discharge patient. Counseling: I had a detailed discussion with the patient and/or guardian regarding the historical points, exam findings, and any diagnostic results supporting the discharge/admit diagnosis, the need for outpatient follow up, to return to the emergency department if symptoms worsen or persist or if there are any questions or concerns that arise at home. Special discussion: I discussed with the patient/guardian in detail that at this point there is no indication for admission to the hospital. It is understood, however, that if the symptoms persist or worsen the patient needs to return immediately for re-evaluation. ED course: Discussed physical exam findings with patient. Patient placed in finger splint, bacitracin ointment applied to laceration with Band-Aid. Patient to follow-up with primary care physician as needed. All questions were answered. Return precautions discussed include worsening symptoms, or any other concerns. 11/02 14:18 Order name: Finger Splint; Complete Time: 14:41 ms3 Administered Medications: 14:41 Drug: Bacitracin Topical Ointment (500 unit/g) 1 application Topical once Route: ap3 Topical; Site: affected area; 14:42 Follow up: Response: Medication administered at discharge. ap3 Disposition Summary: 11/03/23 14:18 Discharge Ordered Notes: Location: Home ms3 Condition: Stable ms3 Diagnosis - Laceration without foreign body of left index finger without damage to nail ms3 Followup: ms3 - With: Private Physician - When: 2 - 3 days - Reason: Recheck today's complaints Discharge Instructions: - Discharge Summary Sheet ms3 - Laceration Care, Adult, [id number] ms3 Forms: - Medication Reconciliation Form ms3 - Thank You Letter ms3 - Antibiotic Education ms3 - Prescription Opioid Use ms3 - Patient Portal Instructions ms3 - Leadership Thank You Letter ms3 Signatures: Pauly Gallegos, FAM RN ap3 Silviano Perry, DO ms3
[2023-11-03 14:56] VITALS: BP 122/75; TEMP 98.4; O2SAT 100
== END 2023-11-03 14:42 | disposition home or self-care (01) ==
LOC: ER 14:05
DX: S61.211A Laceration without foreign body of left index finger without damage to nail, initial encounter (principal); Z88.5 Allergy status to narcotic agent
CPT/HCPCS: 99283

== ENCOUNTER 2024-01-04 00:44 | Emergency (ER) | payer OTHER ==
[2012-04-25 00:05] VITALS: BP 132/81
--- NOTE | 2024-01-04 00:55 | EDPHYS ---
Physician Documentation [facility] Name: Valentino Espinosa Age: 33 yrs Sex: Female : 1990 Arrival Date: 01/04/2024 Time: 00:44 Bed IW1 Private MD: ED Physician HPI: 01/03 00:52 This 33 yrs old Female presents to ER via Unassigned with complaints of 37 sp4 Weeks , contractions. 00:52 Patient left from the waiting area prior to being evaluated.. sp4 - Family history:: not pertinent. MDM: 00:52 Differential Diagnosis . Data reviewed: vital signs, nurses notes. ED course: sp4 Patient left prior to being evaluated by MD . 00:55 Patient medically screened. sp4 Administered Medications: No medications were administered Disposition: 00:55 Chart complete. sp4 Disposition Summary: 01/04/24 00:55 Eloped Notes: Disposition: before being seen by provider sp4 Problem: new sp4 Symptoms: are unchanged sp4 Reason: (see nurse's notes) sp4 Condition: Undetermined sp4 Diagnosis - 37 weeks gestation of sp4 Followup: sp4 - With: Private Physician - When: As needed - Reason: Signatures: Jeff Latham MD MD sp4
--- NOTE | 2024-01-04 01:44 | ER ---
Nurse's Notes [facility] Name: Valentino Espinosa Age: 33 yrs Sex: Female : 1990 Arrival Date: 01/04/2024 Time: 00:44 Bed IW1 Private MD: Diagnosis: 37 weeks gestation of - Family history:: not pertinent. Assessment: 01/03 00:45 General: Went to see patient in [facility] when she state's, " I am not sure if I am having vc1 contractions or not because I have never felt them before. I just want ya'll to see if I am having contractions." I informed the patient that we do not have the monitors that go on the stomach to check for contractions, she would have to be transferred to another facility, pt states, "I don't want to do all that I will just have my drive me to [place] since ya'll can't check" . ED Course: 00:46 Patient arrived in ED. im 00:52 Jeff Latham MD is Attending Physician. sp4 Administered Medications: No medications were administered Outcome: 00:55 Eloped from waiting room, before seeing physician Left to go to a facility with OB vc1 00:55 Condition: Pt claimed she was having cramps in her pubic region every 10-12 minutes vc1 00:55 Instructed on contractions 00:55 Patient left the ED. vc1 Signatures: Snow Wan RN RN vc1 Jeff Latham MD MD sp4 Shu Chaudhary im Corrections: (The following items were deleted from the chart) 01:44 01:43 Patient left the ED. vc1 vc1
== END 2024-01-04 01:43 | disposition left against medical advice (07) ==
LOC: ER 00:44
DX: Z53.21 Procedure and treatment not carried out due to patient leaving prior to being seen by health care provider (principal)
CPT/HCPCS: 99282